=== PATIENT | female | born 1940 | race Caucasian/White ===

== ENCOUNTER → 2016-09-22 | Outpatient (CLI) | payer MEDICARE, OTHER ==
[~2016-09-22] MED LIST: AMIT50TA PO; CALC-451 PO; CETI10TA24 PO; EPIN0.3P3 IM; HYDR1TAB12 PO; MULT-717 PO; PSYL0.5215 PO; TIMO2.5D3 EACHEYE; TRAM50TA2 PO; TRAV5DRO EACHEYE
[2016-09-22 11:35] LABS: BLOOD UREA NITROGEN 16 mg/dL (7-18)
== END | disposition home or self-care (01) ==
LOC: STAR 09:42
PROVIDERS: ATTEND Neurological Surgery
DX: Z01.818 Encounter for other preprocedural examination (principal); M48.06 Spinal stenosis, lumbar region; G89.29 Other chronic pain; M47.896 Other spondylosis, lumbar region
CPT/HCPCS: 36415; 71020; 72114; 80048; 81003; 85025; 85610; 85730; 93005

== ENCOUNTER 2016-10-07 10:41 | Observation (INO) | payer MEDICARE, OTHER ==
[~2016-10-07] VITALS: Ht 160 cm; Wt 68.6 kg
[2016-10-07] MEDS ORDERED: SUCCINYLCHOLINE 20 MG/ML, 10ML ONE (10:43)
[2016-10-07] MEDS ORDERED: CEFAZOLIN 1,000 MG ONE (10:43)
[2016-10-07] MEDS ORDERED: PROPOFOL 10 MG/ML, 20ML ONE (10:43)
[2016-10-07] MEDS ORDERED: ROCURONIUM 10 MG/ML ONE (10:43)
[2016-10-07] MEDS ORDERED: ONDANSETRON 2MG/ML, 2ML ONE (10:43)
[2016-10-07] MEDS ORDERED: DEXAMETHASONE 4 MG/ML, 1ML ONE (10:43)
[2016-10-07] MEDS ORDERED: LACTATED RINGERS 1,000 ML IV SCH (11:06)
[2016-10-07 11:10] VITALS: BP 117/83
[2016-10-07] MEDS ORDERED: FENTANYL PF 100 MCG/2ML ONE ×2 (14:38→15:10)
[2016-10-07] MEDS ORDERED: MIDAZOLAM 1 MG/ML, 2ML ONE (14:38)
[2016-10-07] MEDS ORDERED: BACITRACIN 50,000 UNIT IRRIG ONE (15:24)
[2016-10-07] MEDS ORDERED: BUPIVACAINE/EPI 0.5% 1:200K INFIL ONE (15:25)
[2016-10-07] MEDS ORDERED: THROMBIN 5,000 UNIT VIAL TP ONE (15:26)
[2016-10-07] MEDS ORDERED: HYDROcodone/APAP 7.5-325MG/15ML UDC PO PRN (15:30)
[2016-10-07] MEDS ORDERED: hydrALAzine 20 MG/ML, 1ML IV PRN (15:30)
[2016-10-07] MEDS ORDERED: FENTANYL PF 100 MCG/2ML IV PRN (15:30)
[2016-10-07] MEDS ORDERED: ALBUTEROL SULFATE 2.5 MG/3 ML NPPB PRN (15:30)
[2016-10-07] MEDS ORDERED: METOCLOPRAMIDE 5 MG/ML, 2ML IV PRN (15:30)
[2016-10-07] MEDS ORDERED: OXYcodone 5 MG/5 ML ORAL.SOL UDC PO PRN (15:30)
[2016-10-07] MEDS ORDERED: ONDANSETRON 2MG/ML, 2ML IVPush PRN ×2 (15:30→16:00)
[2016-10-07] MEDS ORDERED: METOPROLOL 1 MG/ML, 5ML IV PRN (15:30)
[2016-10-07] MEDS ORDERED: EPHEDRINE 50 MG/ML, 1ML IVPush PRN (15:30)
[2016-10-07] MEDS ORDERED: KETOROLAC 30 MG/1 ML IV PRN (15:30)
[2016-10-07] MEDS ORDERED: LABETALOL 5MG/ML, 20ML IV PRN (15:30)
[2016-10-07] MEDS ORDERED: ACETAMINOPHEN 325 MG TABLET PO PRN (15:30)
[2016-10-07] MEDS ORDERED: DIPHENHYDRAMINE 50 MG/ML, 1ML IVPush PRN (16:00)
[2016-10-07] MEDS ORDERED: TIZANIDINE 4MG TABLET PO PRN (16:00)
[2016-10-07] MEDS ORDERED: HYDROmorphone 1 MG/ML, 1ML IVPush PRN (16:00)
[2016-10-07] MEDS ORDERED: BISACODYL 10 MG SUPP PR PRN (16:00)
[2016-10-07] MEDS ORDERED: PHARMACY MAY ADJ FOR RENAL FX MC PRN (16:00)
[2016-10-07] MEDS ORDERED: PROMETHAZINE 25 MG/ML, 1ML IM PRN (16:00)
[2016-10-07] MEDS ORDERED: MAGNESIUM HYDROXIDE 8%, 30ML UDC PO PRN (16:00)
[2016-10-07] MEDS ORDERED: MEPERIDINE/PF 100 MG/ML IM PRN (16:00)
[2016-10-07] MEDS ORDERED: OXYcodone/APAP 5/325MG TABLET PO PRN (16:00)
[2016-10-07] MEDS ORDERED: ACETAMINOPHEN 650 MG/20.3 ML UDC ONE (16:20)
[2016-10-07] MEDS ORDERED: ACETAMINOPHEN 325 MG/10.15 ML UDC ONE (16:20)
[2016-10-07] MEDS ORDERED: OXYcodone 5 MG/5 ML ORAL.SOL UDC ONE (16:21)
[2016-10-07] MEDS ORDERED: HYDROmorphone 1 MG/ML, 1ML ONE ×2 (16:21→16:40)
[2016-10-07] MEDS: HYDROmorphone 1 MG/ML, 1ML IV PRN ×4 (16:30→17:00)
[2016-10-07] MEDS: HYDROcodone/APAP 10/325 MG TABLET PO PRN (20:30)
[2016-10-07] MEDS: CETIRIZINE 10 MG TABLET PO SCH (20:30)
[2016-10-07] MEDS: AMITRIPTYLINE 50 MG TABLET PO SCH (20:30)
[2016-10-07] MEDS: SODIUM CHLORIDE FLUSH 10ML SYR IVF SCH (20:31)
[2016-10-07] MEDS: NS + 20MEQ KCL 1,000 ML IV SCH (20:31)
[2016-10-07 20:38] VITALS: BP 109/65
[2016-10-07] MEDS: TIMOLOL OPHTH 0.5%, 5ML EACHEYE SCH (21:48)
[2016-10-07] MEDS: TRAVOPROST OPHTH 0.004%, 2.5ML EACHEYE SCH (21:49)
[2016-10-07] MEDS: CEFAZOLIN PMX 1GM/50ML 50 ML IVPB SCH (22:10)
[2016-10-08 00:01] VITALS: BP 103/50
[2016-10-08] MEDS: HYDROcodone/APAP 10/325 MG TABLET PO PRN ×6 (00:26→21:52)
[2016-10-08 02:39] VITALS: BP 116/70
[2016-10-08] MEDS: NS + 20MEQ KCL 1,000 ML IV SCH (04:31)
[2016-10-08] MEDS: CEFAZOLIN PMX 1GM/50ML 50 ML IVPB SCH (06:23)
[2016-10-08 06:55] VITALS: BP 95/57
[2016-10-08] MEDS: PSYLLIUM PACKET PO SCH (07:53)
[2016-10-08] MEDS: SENNA/DOCUSATE TABLET PO SCH (07:53)
[2016-10-08] MEDS: SODIUM CHLORIDE FLUSH 10ML SYR IVF SCH ×2 (07:54→20:29)
[2016-10-08 14:33] VITALS: BP 98/61
[2016-10-08 19:43] VITALS: BP 125/68
[2016-10-08] MEDS: TRAVOPROST OPHTH 0.004%, 2.5ML EACHEYE SCH (20:28)
[2016-10-08] MEDS: CETIRIZINE 10 MG TABLET PO SCH (20:29)
[2016-10-08] MEDS: AMITRIPTYLINE 50 MG TABLET PO SCH (20:29)
[2016-10-08] MEDS: TIMOLOL OPHTH 0.5%, 5ML EACHEYE SCH (20:29)
[2016-10-09] MEDS: HYDROcodone/APAP 10/325 MG TABLET PO PRN ×6 (02:35→23:54)
[2016-10-09 03:36] VITALS: BP 135/81
[2016-10-09 07:37] VITALS: BP 103/62
[2016-10-09] MEDS: PSYLLIUM PACKET PO SCH (08:14)
[2016-10-09] MEDS: SENNA/DOCUSATE TABLET PO SCH (08:14)
[2016-10-09] MEDS: SODIUM CHLORIDE FLUSH 10ML SYR IVF SCH ×2 (08:15→20:01)
[2016-10-09] MEDS: TIZANIDINE 4MG TABLET PO SCH ×3 (08:21→19:58)
[2016-10-09 13:39] VITALS: BP 138/80
[2016-10-09 18:53] VITALS: BP 113/69
[2016-10-09] MEDS: CETIRIZINE 10 MG TABLET PO SCH (19:58)
[2016-10-09] MEDS: AMITRIPTYLINE 50 MG TABLET PO SCH (19:58)
[2016-10-09] MEDS: TRAVOPROST OPHTH 0.004%, 2.5ML EACHEYE SCH (20:01)
[2016-10-09] MEDS: TIMOLOL OPHTH 0.5%, 5ML EACHEYE SCH (20:01)
[2016-10-10] MEDS: TIZANIDINE 4MG TABLET PO SCH ×2 (02:27→09:05)
[2016-10-10 02:41] VITALS: BP 99/64
[2016-10-10] MEDS: HYDROcodone/APAP 10/325 MG TABLET PO PRN ×2 (04:13→08:08)
[2016-10-10 06:55] VITALS: BP 103/67
[2016-10-10] MEDS: PSYLLIUM PACKET PO SCH (07:45)
[2016-10-10] MEDS: SODIUM CHLORIDE FLUSH 10ML SYR IVF SCH (07:45)
[2016-10-10] MEDS: SENNA/DOCUSATE TABLET PO SCH (07:45)
[2016-10-10 09:30] VITALS: BP 111/60
[2016-10-10] MEDS ORDERED: HYDR-3307 PO (09:47)
[2016-10-10] MEDS ORDERED: TIZA2CAP2 PO (09:50)
== END 2016-10-10 10:10 | disposition home or self-care (01) ==
LOC: OUT 10:41 → ORIP 15:55 → 4NOR 17:44 → DCLOUNGE 10-10 09:49
PROVIDERS: ADMIT Neurological Surgery; ATTEND Neurological Surgery
DX: M48.06 Spinal stenosis, lumbar region (principal); M54.16 Radiculopathy, lumbar region; M50.20 Other cervical disc displacement, unspecified cervical region; M62.81 Muscle weakness (generalized); K21.9 Gastro-esophageal reflux disease without esophagitis
CPT/HCPCS: 63047; 72100; 96365; 96375; 97116; 97162; 97165; 97530; G0378; J0330; J0690; J1100; J1170; J2250; J2405; J2704; J3010; J3480; J7120